=== PATIENT | female | born 1950 | race Caucasian/White ===

== ENCOUNTER 2025-03-21 07:46 | Inpatient (IN) | payer MEDICARE, BC ==
[~2025-03-21] VITALS: Ht 152.4 cm; Wt 64.0 kg
[2025-03-21] MEDS: SODIUM CHLORIDE 0.9% 1000ML 1,000 ML IV STA (08:21)
[2025-03-21] MEDS: ONDANSETRON HCL INJ 2MG/ML 2ML 2 MG/ML VIAL IV STA (08:21)
[2025-03-21 08:33] LABS: BASOPHILS % 0.4 % (0.0-1.0); EOSINOPHILS % 0.0 % (0.0-6.0); LYMPHOCYTES % 9.1 % (18.0-39.1); MONOCYTES % 3.7 % (4.4-11.3); NEUTROPHILS % 86.5 % (38.7-80.0); RED CELL DISTRIBUTION WIDTH 12.5 % (11.7-14.4)
[2025-03-21 08:41] LABS: INR 0.82
[2025-03-21 08:46] LABS: EST GLOMERULAR FILTRATION RATE 90.0 ML/MIN (>=60)
[2025-03-21] MEDS: DIPHENHYDRAMINE HCL INJ 50 MG/ML VIAL IV ONE (10:07)
[2025-03-21] MEDS: PROMETHAZINE 12.5MG/ NACL 0.9% 12.5 MG/50 ML BAG IV ONE ×2 (10:08→11:36)
[2025-03-21] MEDS ORDERED: IOPAMIDOL 370 MG/ML 100 ML INFUS..BTL INJ ONE (11:05)
[2025-03-21] MEDS: SODIUM CHLORIDE 0.9% 500ML 500 ML IV ONE (11:35)
[2025-03-21 12:41] LABS: LEUKOCYTE ESTERASE ,URINE NEGATIVE (NEGATIVE); PROTEIN,URINE DIPSTICK NEGATIVE (NEGATIVE); URINE UROBILINOGEN 0.2 mg/dL (0.2 - 1)
[2025-03-21 12:47] LABS: EPITHELIAL CELLS,URINE FEW /LPF
[2025-03-21] MEDS ORDERED: PROMETHAZINE 12.5MG/ NACL 0.9% 12.5 MG/50 ML BAG IV PRN (13:00)
[2025-03-21] MEDS ORDERED: TYLENOL325 MG PO (13:14)
[2025-03-21] MEDS ORDERED: ENULOSE10 GM/15 M PO (13:14)
[2025-03-21] MEDS ORDERED: CALCIUM600 MG PO (13:14)
[2025-03-21] MEDS ORDERED: MAGNESIUM OXID400 MG PO (13:14)
[2025-03-21] MEDS ORDERED: OPTIMAL D31250 MCG PO (13:14)
[2025-03-21] MEDS ORDERED: WELLBUTRIN SR150 MG PO (13:14)
[2025-03-21] MEDS ORDERED: NORVASC5 MG PO (13:14)
[2025-03-21] MEDS ORDERED: ZOLOFT100 MG PO (13:14)
[2025-03-21] MEDS ORDERED: ALENDRONATE SOD70 MG PO (13:14)
[2025-03-21] MEDS ORDERED: ROSUVASTATIN CA20 MG PO (13:14)
[2025-03-21] MEDS ORDERED: GABAPENTIN300 MG PO (13:17)
[2025-03-21] MEDS ORDERED: INCRUSE ELLI62.5 MCG INH (13:21)
[2025-03-21] MEDS ORDERED: DUO-NEB NEB (13:21)
[2025-03-21] MEDS ORDERED: IBUPROFEN400 MG PO (13:23)
[2025-03-21 13:48] VITALS: PULSE 86; RESP 16; TEMP 98.8
[2025-03-21] MEDS: SODIUM CHLORIDE 0.9% 1000ML 1,000 ML IV SCH (14:43)
[2025-03-21] MEDS ORDERED: ACETAMINOPHEN 325 MG TAB PO PRN (15:15)
[2025-03-21] MEDS ORDERED: DIPHENHYDRAMINE HCL 25 MG CAP PO PRN (15:15)
[2025-03-21] MEDS ORDERED: DOCUSATE SODIUM 100 MG CAP PO PRN (15:15)
[2025-03-21] MEDS ORDERED: HYDRALAZINE HCL 20 MG/ML VIAL IV PRN (15:15)
[2025-03-21] MEDS ORDERED: ALBUTEROL/IPRATROPIUM 3 ML NEB NEB PRN (15:15)
[2025-03-21] MEDS ORDERED: DEXTROSE 50% SYRINGE 50 ML IV PRN ×2 (15:15→15:30)
[2025-03-21] MEDS ORDERED: SIMETHICONE 80 MG CHEW PO PRN (15:15)
[2025-03-21] MEDS ORDERED: LIDOCAINE 4% PATCH TP PRN (15:15)
[2025-03-21] MEDS ORDERED: BENZONATATE 100 MG CAP PO PRN (15:15)
[2025-03-21 15:55] VITALS: BP 138/80; PULSE 79; RESP 18; TEMP 98; O2SAT 96
[2025-03-21 16:28] VITALS: PULSE 75; RESP 20; O2SAT 96
[2025-03-21] MEDS: INSULIN LISPRO 100 UNIT/1 ML 3ML VIAL SQ SCH (16:30)
[2025-03-21] MEDS: D5NS/KCL 20MEQ 1,000 ML IV SCH (16:48)
[2025-03-21] MEDS: ENOXAPARIN SOD INJ 40 MG/0.4 ML SYR SC SCH (16:50)
[2025-03-21 20:00] VITALS: BP 144/71; PULSE 69; RESP 20; TEMP 97.8; O2SAT 94
[2025-03-21 20:35] VITALS: PULSE 73; RESP 20; O2SAT 97
[2025-03-21] MEDS: ONDANSETRON HCL INJ 2MG/ML 2ML 2 MG/ML VIAL IV PRN (20:51)
[2025-03-22] VITALS (10 sets, daily range): BP systolic 129–148; BP diastolic 72–83; PULSE 64–79; RESP 16–20; TEMP 97.6–98.9; O2SAT 94–98
[2025-03-22] MEDS: METOCLOPRAMIDE HCL 10 MG/2ML VIAL IV SCH (05:47)
[2025-03-22] MEDS ORDERED: PANTOPRAZOLE SOD 40 MG TABEC PO SCH (07:30)
[2025-03-22 07:35] LABS: BASOPHILS % 0.3 % (0.0-1.0); EOSINOPHILS % 0.1 % (0.0-6.0); LYMPHOCYTES % 11.0 % (18.0-39.1); MONOCYTES % 7.8 % (4.4-11.3); NEUTROPHILS % 80.4 % (38.7-80.0); RED CELL DISTRIBUTION WIDTH 12.2 % (11.7-14.4)
[2025-03-22 07:59] LABS: EST GLOMERULAR FILTRATION RATE 90.0 ML/MIN (>=60)
[2025-03-22] MEDS: BISACODYL 5 MG TAB EC PO ONE ×2 (20:50)
[2025-03-22] MEDS: SERTRALINE HCL 100 MG TAB PO SCH (20:51)
[2025-03-23] VITALS (8 sets, daily range): BP systolic 128–161; BP diastolic 76–92; PULSE 69–86; RESP 16–18; TEMP 97.8–98.9; O2SAT 92–96
[2025-03-23] MEDS: CITRATE OF MAGNESIA 300ML BOTTLE PO ONE ×3 (04:39→11:09)
[2025-03-23 05:41] LABS: BASOPHILS % 0.2 % (0.0-1.0); EOSINOPHILS % 0.1 % (0.0-6.0); LYMPHOCYTES % 12.1 % (18.0-39.1); MONOCYTES % 9.2 % (4.4-11.3); NEUTROPHILS % 77.8 % (38.7-80.0); RED CELL DISTRIBUTION WIDTH 12.2 % (11.7-14.4)
[2025-03-23 06:14] LABS: EST GLOMERULAR FILTRATION RATE 87.0 ML/MIN (>=60)
[2025-03-23] MEDS: POTASSIUM CHLORIDE 20 MEQ TAB CR PO PRN (06:49)
[2025-03-23] MEDS: CRESTOR 10MG PO SCH (09:05)
[2025-03-23] MEDS: BUPROPION HCL 150 MG TABCR PO SCH (09:05)
[2025-03-23] MEDS: POTASSIUM CHLORIDE 20 MEQ TAB CR PO STA ×2 (10:26→12:04)
[2025-03-23] MEDS ORDERED: POTASSIUM CHLORIDE 20MEQ/100ML 250 ML IV ONE (12:00)
[2025-03-23] MEDS ORDERED: PROPOFOL IV EMULSION 50 ML IV ONE (13:01)
[2025-03-23] MEDS ORDERED: LIDOCAINE HCL 2% LOCAL INJ 5 ML SDV VIAL INJ ONE ×2 (13:01)
[2025-03-23] MEDS ORDERED: FENTANYL CITRATE/PF 100MCG/2 ML INJ ONE (13:02)
[2025-03-23] MEDS ORDERED: HYOSCYAMINE SULFATE 0.5 MG/ML INJ ONE (13:32)
[2025-03-23] MEDS ORDERED: GLUCAGON FOR INJ 1 MG VIAL ONE (13:38)
[2025-03-23] MEDS ORDERED: PROPOFOL IV EMULSION 10 MG/ML 20 ML VIAL ONE (14:06)
[2025-03-23] MEDS: DEXTROSE 5% IV ONE (14:57)
[2025-03-23] MEDS: POTASSIUM CHLORIDE IV ONE (14:57)
[2025-03-23 15:14] LABS: CDIFF AG QUIK CHEK NEGATIVE (NEGATIVE); CDIFF TOX QUIK CHEK NEGATIVE (NEGATIVE)
[2025-03-23] MEDS: MELATONIN 5 MG TABLET PO PRN (20:46)
[2025-03-24] VITALS (11 sets, daily range): BP systolic 144–160; BP diastolic 61–94; PULSE 68–89; RESP 16–20; TEMP 96.4–98.9; O2SAT 95–99
[2025-03-24 05:30] LABS: BASOPHILS % 0.4 % (0.0-1.0); EOSINOPHILS % 0.1 % (0.0-6.0); LYMPHOCYTES % 14.3 % (18.0-39.1); MONOCYTES % 10.4 % (4.4-11.3); NEUTROPHILS % 74.2 % (38.7-80.0); RED CELL DISTRIBUTION WIDTH 12.5 % (11.7-14.4)
[2025-03-24 05:59] LABS: EST GLOMERULAR FILTRATION RATE 87.0 ML/MIN (>=60)
[2025-03-24] MEDS: POTASSIUM CHLORIDE 20 MEQ TAB CR PO SCH (11:24)
[2025-03-24] MEDS: SODIUM BICARBONATE 650 MG TAB PO SCH (16:46)
[2025-03-24] MEDS ORDERED: CHOLESTYRAMINE 4 GM PACKET PO PRN (23:00)
[2025-03-25] VITALS: BP 128/78; PULSE 72; RESP 20; TEMP 98.2; O2SAT 99
[2025-03-25 04:00] VITALS: BP 121/78; PULSE 77; RESP 20; TEMP 98.1; O2SAT 95
[2025-03-25 06:22] LABS: EST GLOMERULAR FILTRATION RATE 91.0 ML/MIN (>=60)
[2025-03-25 08:00] VITALS: BP 138/73; PULSE 76; RESP 18; TEMP 98.2; O2SAT 98
[2025-03-25 08:12] VITALS: PULSE 90; RESP 18; O2SAT 95
[2025-03-25 09:00] VITALS: BP 138/73; PULSE 90; RESP 18; TEMP 98.2; O2SAT 95
[2025-03-25 12:00] VITALS: BP 138/83; PULSE 80; RESP 18; TEMP 98.2; O2SAT 97
== END 2025-03-25 13:45 | disposition home or self-care (01) | DRG 389 ==
LOC: ER 07:58 → ERHOLD 12:53 → MED/SURG2 14:17
PROVIDERS: ADMIT Internal Medicine; ATTEND Internal Medicine
PROC: 0DB68ZX Excision of Stomach, Via Natural or Artificial Opening Endoscopic, Diagnostic (ICD-10-PCS; principal; 2025-03-21)
PROC: 0DB78ZX Excision of Stomach, Pylorus, Via Natural or Artificial Opening Endoscopic, Diagnostic (ICD-10-PCS; 2025-03-21)
PROC: 0DB98ZX Excision of Duodenum, Via Natural or Artificial Opening Endoscopic, Diagnostic (ICD-10-PCS; 2025-03-21)
PROC: 0DBB8ZX Excision of Ileum, Via Natural or Artificial Opening Endoscopic, Diagnostic (ICD-10-PCS; 2025-03-21)
PROC: 0DBH8ZX Excision of Cecum, Via Natural or Artificial Opening Endoscopic, Diagnostic (ICD-10-PCS; 2025-03-21)
PROC: 0DBK8ZZ Excision of Ascending Colon, Via Natural or Artificial Opening Endoscopic (ICD-10-PCS; 2025-03-21)
PROC: 0DBL8ZZ Excision of Transverse Colon, Via Natural or Artificial Opening Endoscopic (ICD-10-PCS; 2025-03-21)
PROC: 0DBM8ZZ Excision of Descending Colon, Via Natural or Artificial Opening Endoscopic (ICD-10-PCS; 2025-03-21)
PROC: 0DBP8ZZ Excision of Rectum, Via Natural or Artificial Opening Endoscopic (ICD-10-PCS; 2025-03-21)
PROC: 0D748ZZ Dilation of Esophagogastric Junction, Via Natural or Artificial Opening Endoscopic (ICD-10-PCS; 2025-03-21)
DX: K56.1 Intussusception (principal); N39.0 Urinary tract infection, site not specified; K22.2 Esophageal obstruction; R13.12 Dysphagia, oropharyngeal phase; D17.5 Benign lipomatous neoplasm of intra-abdominal organs; F41.9 Anxiety disorder, unspecified; F32.A Depression, unspecified; R11.2 Nausea with vomiting, unspecified; I10 Essential (primary) hypertension; E78.5 Hyperlipidemia, unspecified; K29.70 Gastritis, unspecified, without bleeding; K52.9 Noninfective gastroenteritis and colitis, unspecified; Z90.49 Acquired absence of other specified parts of digestive tract; F17.210 Nicotine dependence, cigarettes, uncomplicated
CPT/HCPCS: 36415; 43239; 43450; 45378; 45380; 45385; 74177; 80048; 80053; 81001; 82948; 83630; 83735; 83993; 84132; 84484; 85025; 85610; 85730; 87045; 87086; 87177; 87186; 87324; 87328; 87449; 88305; 93005; 94799; 96372; 99252; 99285; J0696; J1200; J1610; J1650; J1980; J2003; J2405; J2470; J2543; J2550; J2765; J3480; J7030; J7040; Q9967